=== PATIENT | male | born 1985 | race Caucasian/White ===

== ENCOUNTER 2018-09-17 21:04 | Emergency (ER) | payer SELFPAY ==
[~2018-09-17] VITALS: Ht 185.4 cm; Wt 117.9 kg
[2018-09-17 21:18] VITALS: BP 137/90
--- NOTE | 2018-09-17 21:20 | NUR ---
TO LOBBY A/W BED, HONG VERDUZCO NOTED
--- NOTE | 2018-09-17 22:10 | NUR ---
PT IN LOBBY AWAITING MSE, NO CHANGE IN STATUS
--- NOTE | 2018-09-17 22:45 | NUR ---
PATIENT AMBULATED TO ER BED 11.
--- NOTE | 2018-09-17 22:47 | NUR ---
PT IS A 32 Y/O MALE WHO PRESENTS TO THE ED C/O HEADACHE X3 DAYS. PT STATES THAT IT IS ON L TEMPORAL SIDE. PT REPORTS 6/10 ACHING HEADACHE PAIN THAT DOES NOT RADIATE. PT DENIES CP, SOB, N/V/D. PT DENIES BLURRY VISION. PT AWAKE AND ALERT, RR EVEN/UNLABORED. PT REPOSITIONED FOR COMFORT, BED IN LOWEST POSITION. ER MD DR. CABRERA NOTIFIED. WILL CONTINUE TO MONITOR.
[2018-09-18] MEDS ORDERED: ACETAMINOPHEN EXTRA STRENGTH 500 MG TAB PO ONE (00:40)
[2018-09-18] MEDS ORDERED: METOCLOPRAMIDE 10 MG/2 ML INJ VIAL IVP ONE (00:40)
[2018-09-18] MEDS ORDERED: NACL 0.9% 1,000 ML IV ONE (00:40)
--- NOTE | 2018-09-18 00:45 | NUR ---
PT STATES HE WOULD LIKE TO SPEAK WITH ER PHYSICIAN BEFORE IV AND CT.
--- NOTE | 2018-09-18 00:58 | NUR ---
PT AGREED TO GO TO CT, TAKEN TO CT BY WC
[2018-09-18 01:04] LABS: BASOPHILS % (AUTO) 0.5 % (0.0-2.0); EOSINOPHILS # (AUTO) 0.5 K/uL (0-0.4); EOSINOPHILS % (AUTO) 5.5 % (0.0-4.0); HEMATOCRIT 42.8 % (36-52); HEMOGLOBIN 14.4 g/dL (12.0-18.0); LYMPHOCYTES # (AUTO) 3.5 K/uL (2.0-11.5); LYMPHOCYTES % (AUTO) 38.9 % (20.5-51.1); MEAN CORPUSCULAR HEMOGLOBIN 30 pg (27-31); MEAN CORPUSCULAR HGB CONC 34 g/dL (33-37); MEAN CORPUSCULAR VOLUME 88.9 fL (80-94); MONOCYTES # (AUTO) 0.6 K/uL (0.8-1.0); NEUTROPHILS # (AUTO) 4.3 K/uL (1.8-7.7); NEUTROPHILS % (AUTO) 48.1 % (42.2-75.2); PLATELET COUNT (AUTO) 191 K/uL (140-450); RED BLOOD CELL COUNT(AUTO) 4.82 MIL/uL (4.20-6.10); RED CELL DISTRIBUTION WIDTH 12.6 % (11.6-13.7)
--- NOTE | 2018-09-18 01:15 | NUR ---
PATIENT REFUSING IV AND IV MEDS AT THIS TIME. PT WOULD LIKE TO SPEAK WITH DR. EISENBERG. ALERTED ER .
[2018-09-18 01:25] LABS: ANION GAP 8.3 (8-16); CREATININE 0.9 mg/dL (0.7-1.3); POTASSIUM 4.3 mmol/L (3.5-5.1)
[2018-09-18 01:32] LABS: ALBUMIN 4.1 g/dL (3.4-5.0); TOTAL BILIRUBIN 0.4 mg/dL (0.0-1.0)
[2018-09-18] MEDS ORDERED: CLINDAMYCIN 150 MG CAP PO ONE (02:10)
[2018-09-18] MEDS ORDERED: IBUPROFEN 800 MG TAB PO ONE (02:10)
[2018-09-18 02:25] VITALS: BP 132/85
--- NOTE | 2018-09-18 02:25 | NUR ---
Patient discharged with v/s stable. Written and verbal after care instructions given and explained. Patient alert, oriented and verbalized understanding of instructions. Ambulatory with steady gait. All questions addressed prior to discharge. ID band removed. Patient advised to follow up with PMD. Rx of CLINDAMYCIN 300MG, IBUOPROFEN 800MG given. Patient educated on indication of medication including possible reaction and side effects. Opportunity to ask questions provided and answered.
== END 2018-09-18 02:25 | disposition home or self-care (01) ==
LOC: MED 21:04
DX: S02.5XXA Fracture of tooth (traumatic), initial encounter for closed fracture (principal); G44.209 Tension-type headache, unspecified, not intractable; X58.XXXA Exposure to other specified factors, initial encounter; Y93.89 Activity, other specified; Y92.89 Other specified places as the place of occurrence of the external cause; Y99.8 Other external cause status
CPT/HCPCS: 36415; 70450; 80053; 85025; 99285